=== PATIENT | female | born 1945 | race Caucasian/White ===

== ENCOUNTER 2016-10-04 19:33 | Outpatient (CLI) | payer MEDICARE | END 2016-10-04 19:34 | disposition home or self-care (01) | DX: K52.9 Noninfective gastroenteritis and colitis, unspecified (principal) ==

== ENCOUNTER 2016-10-31 08:00 | Outpatient (CLI) | payer MEDICARE | END 2016-10-31 08:01 | disposition home or self-care (01) | DX: R63.4 Abnormal weight loss (principal) ==

== ENCOUNTER 2016-11-17 13:36 | Outpatient (CLI) | payer MEDICARE | END 2016-11-17 13:37 | disposition home or self-care (01) | DX: Z12.31 Encounter for screening mammogram for malignant neoplasm of breast (principal); Z80.3 Family history of malignant neoplasm of breast ==

== ENCOUNTER 2016-12-20 06:14 | Day surgery (SDC) | payer MEDICARE ==
[2016-12-20] MEDS ORDERED: LACTATED RINGERS 1,000 ML IV ONE (07:06)
[2016-12-20] MEDS ORDERED: MIDAZOLAM 2 MG/2 ML VIAL IVP ONE (07:30)
[2016-12-20] MEDS ORDERED: fentaNYL 250 MCG/5 ML VIAL IVP ONE (07:30)
[2016-12-20] MEDS ORDERED: LIDO GARGLE 30 ML BOTTLE TOP ONE (07:42)
== END 2016-12-20 06:15 | disposition home or self-care (01) ==
PROC: 0DB68ZX Excision of Stomach, Via Natural or Artificial Opening Endoscopic, Diagnostic (ICD-10-PCS; principal; 2016-12-20 07:30)
DX: R63.4 Abnormal weight loss (principal); K21.9 Gastro-esophageal reflux disease without esophagitis; K29.50 Unspecified chronic gastritis without bleeding; Z87.891 Personal history of nicotine dependence; Z68.21 Body mass index [BMI] 21.0-21.9, adult; K52.9 Noninfective gastroenteritis and colitis, unspecified; Z88.2 Allergy status to sulfonamides
CPT/HCPCS: 43239; A9270; J3010; J7120

== ENCOUNTER 2017-07-24 10:25 | Outpatient (CLI) | payer MEDICARE ==
[2017-07-24 19:06] LABS: BASOPHILS % (AUTO) 0.7 %; EOSINOPHILS # (AUTO) 0.2 10^3/uL (0.0-0.7); EOSINOPHILS % (AUTO) 3.3 %; HCT - HEMATOCRIT 38.8 % (37.0-47.0); HGB - HEMOGLOBIN 12.6 g/dL (12.0-16.0); LYMPHOCYTES # (AUTO) 1.5 10^3/uL (1.5-3.5); LYMPHOCYTES % (AUTO) 28.2 %; MEAN CORPUSCULAR HEMOGLOBIN 30.8 pg (27.0-31.0); MEAN CORPUSCULAR HGB CONC 32.6 g/dL (32.0-36.0); MEAN CORPUSCULAR VOLUME 94.7 fL (81.0-99.0); MEAN PLATELET VOLUME 8.1 fL (7.9-10.8); MONOCYTES # (AUTO) 0.5 10^3/uL (0.0-1.0); MONOCYTES % (AUTO) 10.5 %; NEUTROPHILS % (AUTO) 57.3 %; NUCLEATED RED BLOOD CELLS AUTO 0.1 /100WBC; RED BLOOD COUNT 4.09 10^6/uL (4.20-5.40); RED CELL DISTRIBUTION WIDTH 13.4 % (12.0-15.0); UNCORRECTED WHITE BLOOD COUNT 5.2 x10^3/uL; WHITE BLOOD COUNT 5.2 x10^3/uL (4.8-10.8)
[2017-07-24 19:54] LABS: ALBUMIN/GLOBULIN RATIO 1.7 (1.0-2.2); BILIRUBIN,TOTAL 0.3 mg/dL (0.2-1.0); BUN - BLOOD UREA NITROGEN 15 mg/dL (6-20); CALCIUM 9.3 mg/dL (8.5-10.3); CARBON DIOXIDE - CO2 29 mmol/L (21-32); CHLORIDE 103 mmol/L (101-111); CHOL/HDL RATIO 3.2 (<4.4); CHOLESTEROL 300 mg/dL; CREATININE 0.8 mg/dL (0.4-1.0); GFR - MDRD 71 (>89); GLUCOSE 77 mg/dL (70-100); HDL CHOLESTEROL 93 mg/dL; LDL/HDL RATIO 1.9 (<4.4); SODIUM 139 mmol/L (135-145); TOTAL PROTEIN 6.7 g/dL (6.7-8.2); TRIGLYCERIDES 170 mg/dL; VLDL CHOLESTEROL 34 mg/dL
== END 2017-07-24 10:26 | disposition home or self-care (01) ==
LOC: LAB.WCP 10:25
PROVIDERS: ATTEND Family Medicine
DX: R63.4 Abnormal weight loss (principal); E78.5 Hyperlipidemia, unspecified; D64.9 Anemia, unspecified
CPT/HCPCS: 36415; 80053; 80061; 84443; 85025

== ENCOUNTER 2017-11-23 08:48 | Outpatient (CLI) | payer MEDICARE ==
--- NOTE | 2017-11-24 15:51 | Mammography Report ---
DIGITAL SCREENING MAMMOGRAM: 11/23/2017 CLINICAL INDICATION: A 72-year-old, for screening. COMPARISON: 11/2016, 08/2015, 08/2013, 04/2012, 03/2011, 12/2009. TECHNIQUE: Routine CC and MLO projections were obtained of the breasts. FINDINGS: Scattered fibroglandular tissue is present within the breasts. There are no dominant masses, suspicious microcalcifications, or secondary signs of malignancy. In comparison to the previous studies, there are no significant changes. ASSESSMENT: NO MAMMOGRAPHIC EVIDENCE OF MALIGNANCY. NO SIGNIFICANT INTERVAL CHANGES. RECOMMENDATION: Screening mammography is recommended annually. BIRADS category 1 - negative. STANDARD QUALIFYING STATEMENTS: 1. This examination was reviewed with the aid of Computed-Aided Detection (CAD). 2. A negative or benign imaging report should not delay biopsy if clinically suspicious findings are present. Consider surgical consultation if warranted. More than 5% of cancers are not identified by imaging. 3. Dense breasts may obscure an underlying neoplasm. TD: 11/24/2017 15:51
== END 2017-11-23 08:49 | disposition home or self-care (01) ==
LOC: DI.N 08:48
PROVIDERS: ATTEND Family Medicine
DX: Z12.31 Encounter for screening mammogram for malignant neoplasm of breast (principal)
CPT/HCPCS: 77067

== ENCOUNTER 2017-11-23 09:20 | Outpatient (CLI) | payer MEDICARE ==
--- NOTE | 2017-11-23 10:20 | XRAY Report ---
THREE VIEW RIGHT KNEE: 11/22/2017 CLINICAL INDICATION: Pain. FINDINGS: AP, lateral, sunrise views of the right knee demonstrate no evidence of fracture or dislocation. The joint spaces are preserved. No effusion is present. IMPRESSION: NORMAL RIGHT KNEE. TD: 11/23/2017 10:19
== END 2017-11-23 23:59 | disposition home or self-care (01) ==
LOC: DI.N 09:20
PROVIDERS: ATTEND Family Medicine
DX: M25.561 Pain in right knee (principal)

== ENCOUNTER 2017-11-29 17:07 | Emergency (ER) | payer MEDICARE ==
[2017-11-29 17:31] VITALS: BP 148/67
--- NOTE | 2017-11-29 17:55 | XRAY Preliminary Report ---
Exam: XR WRIST 4 VIEW LT IMPRESSION: 1. Acute, transverse and impacted, mildly dorsally angulated distal left radius metaphyseal fracture. 2. Large amount of soft tissue swelling. No dislocation. [facility] SITE ID: [id number]
--- NOTE | 2017-11-29 19:16 | XRAY Report ---
EXAM: LEFT WRIST RADIOGRAPHY EXAM DATE: 11/29/2017 05:46 PM. CLINICAL HISTORY: Injury. COMPARISON: None. TECHNIQUE: 3 views. FINDINGS: Bones: Acute transverse, impacted, mildly dorsally angulated distal left radius metaphyseal fracture. No carpal bone fracture is noted. Joints: Normal. No subluxations. Soft Tissues: Large amount of soft tissue swelling in the dorsal left wrist. IMPRESSION: 1. Acute, transverse and impacted, mildly dorsally angulated distal left radius metaphyseal fracture. 2. Large amount of soft tissue swelling. No dislocation. [facility] Referring Provider Line: [phone] SITE ID: [id number]
--- NOTE | 2017-11-29 19:22 | ED Physician Documentation ---
PD HPI UPPER EXT INJURY - Stated complaint Stated Complaint: LT WRIST PX - Chief complaint Chief Complaint: Ext Problem - History obtained from History obtained from: Patient - History of Present Illness Location: Left, Wrist Type of injury: Fall Where injury occurred: Home (out in her garden.) Timing - onset: Today Timing - details: Abrupt onset, Still present Improved by: Immobilization Worsened by: Moving, Palpating Associated symptoms: No: Weakness, Numbness Contributing factors: No: Anticoagulated Similar symptoms before: Has not had sx before Recently seen: Not recently seen Review of Systems Skin: denies: Abrasion (s), Laceration (s) Neurologic: denies: Focal weakness, Numbness PD PAST MEDICAL HISTORY - Past Medical History Cardiovascular: High cholesterol Respiratory: None Neuro: None Endocrine/Autoimmune: None GI: GERD, Chronic diarrhea, Other HEENT: Other Psych: Depression, Anxiety, Panic attacks, ADD/ADHD Musculoskeletal: Osteoporosis, Chronic back pain, Other Derm: Psoriasis - Past Surgical History Past Surgical History: Yes General: Colonoscopy Ortho: Arthroscopic surgery, 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 HEENT: Tonsil/Adenoidectomy - Present Medications Home Medications: Ambulatory Orders Medication Instructions Recorded Confirmed HYDROcod/ACETAM 5/325 [[place] 5/325] 1 - 2 ea PO Q6H PRN #15 tablet 02/29/16 Omeprazole [PriLOSEC] 20 mg PO DAILY 12/19/16 12/20/16 HYDROcod/ACETAM 5/325 [[place] 5/325] 1 tab PO Q6H PRN #15 tablet 11/29/17 - Allergies Allergies/Adverse Reactions: Allergies Allergy/AdvReac Type Severity Reaction Status Date / Time Sulfa (Sulfonamide AdvReac Nausea Verified 12/19/16 12:31 Antibiotics) - Social History Does the pt smoke?: No Smoking Status: Never smoker - Immunizations Immunizations are current?: Yes PD ED PE NORMAL - Vitals Vital signs reviewed: Yes - General General: Alert and oriented X 3, No acute distress, Well developed/nourished - HEENT HEENT: Pharynx benign - Extremities Extremities: No deformity, No tenderness to palpate - Neuro Neuro: Alert and oriented X 3 Eye Opening: Spontaneous Motor: Obeys Commands Verbal: Oriented GCS Score: 15 Results - Vitals Vitals: Oxygen O2 Source Room air Procedures - Splint (location) wrist left Splint applied by: Physician Type of splint: Fiberglass, Long arm, Sugar tong Other: Patient tolerated well, No complications, Neurovascular intact, Sling provided PD MEDICAL DECISION MAKING - ED course Complexity details: reviewed results, considered differential, d/w patient Departure - Departure Disposition: 01 Home, Self Care Clinical Impression: Accidental fall Qualifiers: Encounter type: initial encounter Qualified Code(s): W19.XXXA - Unspecified fall, initial encounter Distal radius fracture, left Qualifiers: Encounter type: initial encounter Fracture type: closed Fracture morphology: Colles' Qualified Code(s): S52.532A - Colles' fracture of left radius, initial encounter for closed fracture Condition: Stable Record reviewed to determine appropriate education?: Yes Instructions: ED Fx Colles Wrist No Redu Requ, ED Splint Care Fiberglass Follow-Up: Quintin Salas DO [Primary Care Provider] - Brisa Ozuna MD [Provider Admit Priv/Credential] - Prescriptions: HYDROcod/ACETAM 5/325 [[place] 5/325] 1 tab PO Q6H PRN #15 tablet PRN Reason: Pain Comments: Keep the splint clean and dry. Elevate rest and ice your wrist frequently over the next few days to reduce swelling. Use the sling to help keep it elevated and rested. Call tomorrow orthopedics for follow-up appointment for early next week. Tell them you are seen here in the ER and have a broken wrist. He will need a cast for likely 4-6 weeks for this to heal up fully. Tylenol or ibuprofen if needed for pains. Add hydrocodone if needed for worse pain. Discharge Date/Time: 11/29/17 20:00
[2017-11-29] MEDS ORDERED: HYDROcod/ACET 5/325 Prepack 4 PO STA (19:37)
[2017-11-29] MEDS ORDERED: HYDROcod/ACETAM 5/325 MG TABLET PO STA (19:37)
[2017-11-29] MEDS ORDERED: IBUPROFEN 600 MG TABLET PO STA (19:37)
== END 2017-11-29 20:00 | disposition home or self-care (01) ==
LOC: ED 17:07
DX: S52.532A Colles' fracture of left radius, initial encounter for closed fracture (principal); W18.39XA Other fall on same level, initial encounter; Y92.017 Garden or yard in single-family (private) house as the place of occurrence of the external cause; E78.00 Pure hypercholesterolemia, unspecified; M81.0 Age-related osteoporosis without current pathological fracture; K21.9 Gastro-esophageal reflux disease without esophagitis
CPT/HCPCS: 29105; 73110; 99283; A9270

== ENCOUNTER 2018-08-16 08:30 | Outpatient (CLI) | payer MEDICARE ==
--- NOTE | 2018-08-16 15:04 | MRI Report ---
Reason: WRIST PAIN,LEFT Procedure Date: 08/16/2018 Accession Number: [id number] / [id number] Procedure: MRI - Wrist LT W/O CPT Code: FULL RESULT: EXAM: LEFT WRIST MRI WITHOUT CONTRAST EXAM DATE: 08/16/2018 08:57 AM. CLINICAL HISTORY: Left wrist pain. COMPARISON: 08/09/2018 radiograph. TECHNIQUE: Multiplanar, multisequence T1-weighted and fluid-sensitive sequences of the wrist without contrast. Other: None. FINDINGS: Bones: No fractures. Mild joint space narrowing and osteophyte formation is at the first carpometacarpal joint. There is severe joint space narrowing and osteophyte formation at the proximal interphalangeal joint of the fifth digit. Periarticular marrow edema is at the intersection of the scapholunate articulation. Marrow edema is demonstrated in the distal scaphoid. Minimal osteophyte formation is in the triscaphe joint. Cartilage: The articular cartilage of the first carpometacarpal and triscaphe joints is mild to moderately thinned. The triangular fibrocartilage has a focal full-thickness, partial-width tear of the mid radial fibers located approximately 2.6 mm from the radial insertion site (701/8). Ligaments: The scapholunate and lunotriquetral ligaments are intact. The visualized other intrinsic, extrinsic and collateral ligaments are unremarkable. Tendons: The extensor carpi ulnaris tendon demonstrates mild tendinosis. The other visualized flexor and extensor tendons are unremarkable. Musculature: No edema or fatty atrophy. Other: The contents of the carpal tunnel, including the median nerve, are unremarkable. Guyons canal is unremarkable. No ganglion cysts. A moderate effusion is in the distal radioulnar joint. The subcutaneous tissues are unremarkable. IMPRESSION: 1. 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 2. Full-thickness, partial-width tear of the mid radial fibers of the triangular fibrocartilage. 3. Mild tendinosis of the extensor carpi ulnaris tendon. [facility] MUSCULOSKELETAL RADIOLOGY SECTION
== END 2018-08-16 08:31 | disposition home or self-care (01) ==
LOC: DI 08:30
PROVIDERS: ATTEND Family Medicine
DX: S63.522A Sprain of radiocarpal joint of left wrist, initial encounter (principal); M67.932 Unspecified disorder of synovium and tendon, left forearm; M19.032 Primary osteoarthritis, left wrist

== ENCOUNTER 2019-04-10 09:39 | Outpatient (CLI) | payer MEDICARE ==
--- NOTE | 2019-04-11 09:12 | DEXA Report ---
Reason: ENCOUNTER FOR SCREENING FOR OSTEOPOROSIS Procedure Date: 04/10/2019 Accession Number: [id number] / [id number] Procedure: DEX - Dexa Spine and/or Hip CPT Code: FULL RESULT: EXAM: Dexa Spine and/or Hip DATE: 04/10/2019 10:05 AM CLINICAL HISTORY: ENCOUNTER FOR SCREENING FOR OSTEOPOROSIS TECHNIQUE: Dual energy x-ray absorptiometry (DXA) was performed on a Helishopter System. Regions measured are the AP Spine, femoral neck, and if needed forearm. COMPARISON: None. In accordance with the International Society for Clinical Densitometry (ISCD) guidelines, data from previous exams may be reanalyzed using current recommendations and techniques. This is done to allow a more accurate basis for comparison with the current study. FINDINGS: The data for the lumbar spine is as follows: BMD (g/cm/cm) T-SCORE Z-SCORE REGION L1 0.794 -2.8 -0.9 L2 0.820 -3.2 -1.3 L3 0.907 -2.4 -0.5 L4 1.034 -1.4 0.5 TOTAL 0.897 -2.4 -0.5 NOTE: All evaluable vertebrae are used for classification The data for the hip is as follows: BMD (g/cm/cm) T-SCORE Z-SCORE REGION Neck 0.664 -2.7 -0.8 TOTAL 0.692 -2.5 -0.8 NOTE: The femoral neck or total proximal femur, whichever is lowest, is used for classification. IMPRESSION: THE WHO CLASSIFICATION BASED ON THE INTERNATIONAL REFERENCE STANDARD IS OSTEOPOROSIS. THE FRACTURE RISK IS HIGH. RECOMMENDATION: Patients with diagnosis of osteoporosis or osteopenia should have regular bone mineral density assessment. For those eligible for Medicare, routine testing is allowed once every 2 years. Testing frequency can be increased for patients who have rapidly progressing disease or for those who are receiving medical therapy to restore bone mass. COMMENT: World Health Organization (WHO) definitions for osteoporosis and osteopenia: NORMAL BMD: T-score at -1.0 or higher, fracture risk is low OSTEOPENIA BMD: T-score between -1.0 and -2.5, fracture risk is increased. OSTEOPOROSIS BMD: T-score at -2.5 or lower, fracture risk is high. National Osteoporosis Foundation recommends: 1. Obtain adequate dietary calcium (at least 1200 mg per day) and vitamin D (400-800 international units per day). 2. Participate, as appropriate, in regular weightbearing and muscle-strengthening exercise. 3. Avoid tobacco use and reduce alcohol and caffeine intake. 4. For more detailed information see the website at www.NOF.org.
== END 2019-04-10 09:40 | disposition home or self-care (01) ==
LOC: DI 09:39
PROVIDERS: ATTEND Family Medicine
DX: M81.0 Age-related osteoporosis without current pathological fracture (principal)
CPT/HCPCS: 77080

== ENCOUNTER 2019-04-10 11:24 | Outpatient (CLI) | payer MEDICARE ==
--- NOTE | 2019-04-11 08:43 | Mammography Report ---
Reason: SCREENING MAMMO Procedure Date: 04/10/2019 Accession Number: [id number] / [id number] Procedure: MGN - Screening Mammo Dig Bilat CPT Code: FULL RESULT: EXAM: Screening Mammo Dig Bilat DATE: 04/10/2019 11:42 AM CLINICAL HISTORY: Screening encounter. Family history of breast cancer in the daughter at the age of 27. TECHNIQUE: (B) - Bilateral CC and MLO views were obtained. COMPARISON: 11/23/2017 through 08/06/2013. PARENCHYMAL PATTERN: (A) - The breast(s) demonstrate(s) scattered fibroglandular densities. FINDINGS: There are typically benign vascular calcifications. There are no suspicious masses, calcifications, or areas of distortion. IMPRESSION: Benign findings. BI-RADS category 2. RECOMMENDATION: (ANNUAL) - Recommend routine annual screening mammography. BI-RADS CATEGORY: (2) - Benign Findings. STANDARD QUALIFYING STATEMENTS: 1. This examination was not reviewed with the aid of Computer-Aided Detection (CAD). 2. A negative or benign imaging report should not preclude biopsy if clinically suspicious findings are present. 3. Dense breasts may obscure an underlying neoplasm. 4. This examination was reviewed without the aid of 3D breast imaging (tomosynthesis).
== END 2019-04-10 11:25 | disposition home or self-care (01) ==
LOC: DI.N 11:24
DX: Z12.31 Encounter for screening mammogram for malignant neoplasm of breast (principal); Z80.3 Family history of malignant neoplasm of breast
CPT/HCPCS: 77067

== ENCOUNTER 2019-04-18 05:46 | Emergency (ER) | payer MEDICARE ==
[2019-04-18] MEDS ORDERED: LIDOCAINE 1% 2 ML VIAL SUBQ STA (06:13)
[2019-04-18] MEDS ORDERED: ACETAMINOPHEN 325 MG TABLET PO STA (06:13)
[2019-04-18] MEDS ORDERED: diazePAM 5 MG TABLET PO STA (06:13)
--- NOTE | 2019-04-18 06:17 | ED Physician Documentation ---
History of Present Illness - Stated complaint Stated Complaint: BK PX/LEG PX - Chief complaint Chief Complaint: Back Pain - Additonal information Additional information: This is a 73-year-old female with a history of lumbar back surgery, who presents with lower back/right gluteal pain radiating to her right leg. Patient was working in her garden 2 days ago, moving some rocks and she reached back and twisted to grab a rock and she had some pain in her right lower back rating to her right gluteal region. The following day it began to radiate down below her leg. She is in enough pain that she has had difficulty ambulating. She denies any weakness or numbness in her legs, she occasionally will get some tingling in her toes in her right leg but she thinks this is related to position, because it will resolve when she changes position of her leg. She denies any changes in her bowel or bladder function, no numbness in her perineal area. Review of Systems Constitutional: denies: Fever GI: denies: Abdominal Pain : denies: Hesitancy, Unable to Void Musculoskeletal: reports: Back pain Neurologic: denies: Generalized weakness, Focal weakness Immunocompromised: denies: Immunocompromised PD PAST MEDICAL HISTORY - Past Medical History Cardiovascular: High cholesterol Respiratory: None Neuro: Migraines, Other Endocrine/Autoimmune: None GI: GERD, Chronic diarrhea, Other HEENT: Other Psych: Depression, Anxiety, Panic attacks, ADD/ADHD Musculoskeletal: Osteoporosis, Chronic back pain, Other Derm: Psoriasis Other Past Medical History: Intercranial aneurysm - Past Surgical History Past Surgical History: Yes General: Colonoscopy Ortho: Arthroscopic surgery, 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 HEENT: Cataracts, Tonsil/Adenoidectomy - Present Medications Home Medications: Ambulatory Orders Medication Instructions Recorded Confirmed Acetaminophen 650 mg PO Q6HR #30 tablet 04/18/19 Meloxicam 15 mg PO DAILY 04/18/19 04/18/19 Methocarbamol [Robaxin] 500 mg PO TID PRN #21 tablet 04/18/19 - Allergies Allergies/Adverse Reactions: Allergies Allergy/AdvReac Type Severity Reaction Status Date / Time Sulfa (Sulfonamide AdvReac Nausea Verified 12/19/16 12:31 Antibiotics) - Social History Does the pt smoke?: No Smoking Status: Never smoker Does the pt drink ETOH?: No Does the pt have substance abuse?: No - Immunizations Immunizations are current?: Yes PD ED PE NORMAL - Vitals Vital signs reviewed: Yes - General General: Alert and oriented X 3 - HEENT HEENT: Atraumatic - Neck Neck: Supple, no meningeal sign - Cardiac Cardiac: RRR - Respiratory Respiratory: No respiratory distress - Abdomen Abdomen: Non distended - Back Back: Other (There is no tenderness palpation in the midline. Over the right paraspinous lumbar muscles there is tenderness to palpation, as well as in the superior gluteal muscles. Patient also has some tenderness on her medial anterior right thigh. 5 out of 5 strength with ankle dorsiflexion and plantarflexion bilaterally. Sensation to light touch is intact over the entire bilateral feet and lower extremities. DP pulses are 2+ and symmetric bilaterally. 2+ patellar reflexes bilaterally.) - Derm Derm: Warm and dry - Extremities Extremities: No deformity - Neuro Neuro: Alert and oriented X 3 - Psych Psych: Normal mood, Normal affect Results - Vitals Vitals: Vital Signs - 24 hr 04/18/19 05:52 Temperature 36.6 C Heart Rate 69 Respiratory 17 Rate Blood Pressure 144/96 H O2 Saturation 100 Oxygen O2 Source Room air Procedures - General procedure General procedure: Trigger point injection: After discussing the risks and benefits of the procedure, including the risk of bleeding and infection. Patient verbalized her consent. I localized the 3 areas of maximal tenderness in her right lumbar spine, these were prepped with an alcohol pad, and I injected 0.5 cc of lidocaine using a 27-gauge needle into each of these areas. Care was taken to pull back on the syringe to confirm that the needle was not in a vessel, and care was also taken to only insert the needle less than 2 cm in depth to avoid damaging any deep structures. Patient tolerated the procedure well. PD MEDICAL DECISION MAKING - ED course Complexity details: considered differential (Sciatica, muscle strain, fracture, muscle spasm, contusion) ED course: On initial examination patient is neurologically intact, she is uncomfortable appearing. She was given Valium for pain, Tylenol, and and I performed a trigger point injection in the areas of most tenderness as noted above. Given patient's age and her severe pain a CT scan of her L-spine was obtained, this shows no acute osseous abnormality or fracture, she does have extensive degenerative changes. On repeat examination she is feeling better, though she does have some pain. She continues to be neurologically intact, has no fever, no indications for emergency MRI at this time. I reviewed the results of her studies with the patient, including that she likely has sciatica with potentially some degree of muscle spasm or strain as well. I reviewed care for this, prescribed her Tylenol as well as Robaxin for breakthrough pain, and reviewed the dangers of sedating medications with her. She has follow-up with her primary care provider and a pain specialist later this week. I discussed return precautions including any weakness, numbness, or other symptoms that are concerning. Patient agreed and was discharged home in the care of her family. Departure - Departure Disposition: , Self Care Clinical Impression: Back pain Qualifiers: Back pain location: low back pain Chronicity: acute Back pain laterality: right Sciatica presence: with sciatica Sciatica laterality: sciatica of right side Qualified Code(s): M54.41 - Lumbago with sciatica, right side Condition: Good Instructions: ED Low Back Pain Injury Follow-Up: Mejia Corona DO [Primary Care Provider] - Within 1 week Prescriptions: Acetaminophen 650 mg PO Q6HR #30 tablet Methocarbamol [Robaxin] 500 mg PO TID PRN #21 tablet PRN Reason: Pain Comments: You were seen today for lower back pain. I think this is likely due to sciatica, or a pinched nerve which is causing pain going down your leg. You may also have some muscle strain. Please rest, and use ice, or use heat on your back. Avoid any straining or twisting movement's. You can continue your normal daily activities otherwise. You may use a anti-inflammatory medication such as Aleve or ibuprofen, combined with Tylenol and muscle relaxant Robaxin if needed. Follow-up with your primary care provider as soon as possible. Return to the emergency department if you develop any weakness, numbness, or difficulty going to the bathroom, or any other concerning symptoms.
--- NOTE | 2019-04-18 07:43 | CT Report ---
Reason: Severe lower back pain after twisting Procedure Date: 04/18/2019 Accession Number: [id number] / [id number] Procedure: CT - LUMBAR SPINE WO CPT Code: FULL RESULT: EXAM: CT LUMBAR SPINE WITHOUT CONTRAST EXAM DATE: 04/18/2019 07:31 AM. CLINICAL HISTORY: Low back pain. COMPARISONS: None. TECHNIQUE: Thin-section axial images were acquired of the lumbar spine from T12 to S1 without contrast. Post-processing: Coronal and sagittal reformats. Other: None. In accordance with CT protocol optimization, one or more of the following dose reduction techniques were utilized for this exam: automated exposure control, adjustment of mA and/or KV based on patient size, or use of iterative reconstructive technique. FINDINGS: Alignment: No scoliosis or spondylolisthesis. Bones: Five [id number] lumbar vertebral bodies are present. No fractures or bone lesions. Disk Levels/Facets: There is moderate diffuse degenerative disk disease seen throughout the mid and lower aspects of the lumbar spine, worse at L4-L5 and L5-S1. There is mild diffuse degenerative facet disease seen throughout the mid and lower aspect of the lumbar spine. Overall, the bony central canal appears relatively patent although underlying diskogenic disease in the mid lumbar spine suggests a degree of spinal canal stenosis (image 70/4) is.. Musculature: Normal. No fatty atrophy. Other: The visualized retroperitoneum is unremarkable. IMPRESSION: 1. No acute osseous abnormality demonstrated. 2. Mild to moderate diffuse degenerative spondylosis changes in the mid and lower lumbar spine. [facility]
[2019-04-18 08:25] VITALS: BP 135/84
== END 2019-04-18 08:24 | disposition home or self-care (01) ==
LOC: ED 05:46
DX: M54.41 Lumbago with sciatica, right side (principal)
CPT/HCPCS: 20552; 72131; 99284; A9270

== ENCOUNTER 2020-01-17 20:38 | Outpatient (CLI) | payer MEDICARE ==
--- NOTE | 2020-01-17 21:59 | Ultrasound Report ---
Reason: LEFT LEG PAIN Procedure Date: 01/17/2020 Accession Number: [id number] / [id number] Procedure: US - Duplex Ext Veins Left CPT Code: Final Report FULL RESULT: EXAM: LEFT LOWER EXTREMITY VENOUS ULTRASOUND EXAM DATE: 01/17/2020 09:52 PM. CLINICAL HISTORY: LEFT LEG PAIN. COMPARISON: DUPLEX EXT VEINS LEFT 02/29/2016 6:16 PM. TECHNIQUE: Real-time sonographic vascular imaging was performed by the tig welder through the lower extremity utilizing both color-flow and Doppler spectral analysis. Multiple wholesale representative static images were saved for review. FINDINGS: Common Femoral Vein (CFV): Normal. CFV-GSV Junction: Normal. Profunda Femoral Vein (PFV): Normal. Femoral Vein (FV) Prox: Normal. Femoral Vein (FV) Mid: Normal. Femoral Vein (FV) Dist: Normal. Popliteal Vein: Normal. Posterior Tibial Veins: Normal. Peroneal Veins: Normal. Contralateral Side CFV: Normal. Other: None. IMPRESSION: No evidence for deep venous thrombosis. [facility]
== END 2020-01-17 20:39 | disposition home or self-care (01) ==
LOC: DI 20:38
PROVIDERS: ATTEND Family Medicine
DX: M79.605 Pain in left leg (principal)

== ENCOUNTER 2020-04-23 09:24 | Outpatient (CLI) | payer MEDICARE ==
--- NOTE | 2020-04-24 08:09 | Mammography Report ---
BILATERAL DIGITAL SCREENING MAMMOGRAM 3D/2D: 04/23/2020 CLINICAL: Routine screening. Comparison is made to exams dated: 04/10/2019 mammogram, 11/23/2017 mammogram, 11/17/2016 mammogram, and 08/25/2015 mammogram - [facility]. There are scattered fibroglandular elements in both breasts. No significant masses, calcifications, or other findings are seen in either breast. There has been no significant interval change. IMPRESSION: NEGATIVE There is no mammographic evidence of malignancy. A 1 year screening mammogram is recommended. This exam was interpreted at Station ID: [id number]. NOTE: For mammograms, a report in lay terms will be sent to the patient. Approximately 15% of breast malignancies will not be visualized mammographically. In the management of a palpable breast mass, a negative mammogram must not discourage biopsy of a clinically suspicious lesion. Electronically Signed By: Kilo Phoenix M.D. aty/penrad:04/23/2020 10:37:31 ACR BI-RADS Category 1: Negative [id number] PARENCHYMAL PATTERN: (A) - The breast(s) demonstrate(s) scattered fibroglandular densities. BI-RADS CATEGORY: (1) - 1 RECOMMENDATION: (ANNUAL) - Recommend routine annual screening mammography. [id number] 1 year screening LATERALITY: (B)
== END 2020-04-23 09:25 | disposition home or self-care (01) ==
LOC: DI.N 09:24
PROVIDERS: ATTEND Registered Nurse
DX: Z12.31 Encounter for screening mammogram for malignant neoplasm of breast (principal); Z80.3 Family history of malignant neoplasm of breast
CPT/HCPCS: 77063; 77067

== ENCOUNTER 2020-06-10 14:03 | Outpatient (CLI) | payer MEDICARE ==
--- NOTE | 2020-06-10 17:44 | MRI Report ---
PROCEDURE: Angio Brain W/O (MRA) INDICATIONS: ANEURYSM TECHNIQUE: Noncontrast axial 3-D [id number] MR angiogram, with 3-dimensional maximum intensity projection (M IP) reformats of the internal carotid arteries and posterior circulation then performed. COMPARISON: MRI/MRA brain 06/10/2020, 05/30/2016 FINDINGS: Image quality: Excellent. Anterior circulation: Intracranial internal carotid arteries demonstrate normal size and intralumina l flow signal. The flow within the paired anterior cerebral arteries is normal and symmetric. Previo usly identified aneurysm within the right middle cerebral artery at the trifurcation is stable compar ed to prior exam. It measures approximately 6 mm long by 4 mm wide. The anterior communicating artery is seen. No stenoses, occlusions, or aneurysms. Posterior circulation: Visualized portions of the vertebral arteries demonstrate normal caliber, and join to form a normal appearing basilar artery. The flow within the posterior cerebral arteries is normal and symmetric. No stenoses, occlusions, or aneurysms. IMPRESSION: 1. 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 No new aneurysms are identified. Reviewed by: Rosalba Stanton MD on 06/10/2020 4:18 PM PDT Approved by: Rosalba Stanton MD on 06/10/2020 4:18 PM PDT Station ID: [id number]
== END 2020-06-10 14:04 | disposition home or self-care (01) ==
LOC: DI 14:03
PROVIDERS: ATTEND Family Medicine
DX: I67.1 Cerebral aneurysm, nonruptured (principal)
CPT/HCPCS: 70544; 70551

== ENCOUNTER 2020-06-26 08:00 | Outpatient (CLI) | payer MEDICARE ==
[2020-06-26 11:40] LABS: BASOPHILS # (AUTO) 0.1 10^3/uL (0.0-0.1); BASOPHILS % (AUTO) 0.8 %; EOSINOPHILS # (AUTO) 0.1 10^3/uL (0.0-0.7); EOSINOPHILS % (AUTO) 2.3 %; HGB - HEMOGLOBIN 13.3 g/dL (12.0-16.0); LYMPHOCYTES # (AUTO) 1.5 10^3/uL (1.5-3.5); LYMPHOCYTES % (AUTO) 24.7 %; MEAN CORPUSCULAR HGB CONC 32.5 g/dL (32.0-36.0); MEAN CORPUSCULAR VOLUME 95.3 fL (81.0-99.0); MEAN PLATELET VOLUME 9.8 fL (7.9-10.8); MONOCYTES # (AUTO) 0.6 10^3/uL (0.0-1.0); MONOCYTES % (AUTO) 9.7 %; NEUTROPHILS # (AUTO) 3.8 10^3/uL (1.5-6.6); NEUTROPHILS % (AUTO) 62.3 %; PLT - PLATELET COUNT 291 10^3/uL (130-450); RED BLOOD COUNT 4.29 10^6/uL (4.20-5.40); RED CELL DISTRIBUTION WIDTH 13.2 % (12.0-15.0); WHITE BLOOD COUNT 6.1 x10^3/uL (4.8-10.8)
[2020-06-26 12:02] LABS: ALBUMIN 4.1 g/dL (3.2-5.5); ALBUMIN/GLOBULIN RATIO 1.4 (1.0-2.2); BILIRUBIN,TOTAL 0.4 mg/dL (0.2-1.0); CALCIUM 9.7 mg/dL (8.5-10.3); CREATININE 0.7 mg/dL (0.4-1.0); MAGNESIUM 2.3 mg/dL (1.7-2.8); TOTAL PROTEIN 7.1 g/dL (6.7-8.2)
== END 2020-06-26 23:59 | disposition home or self-care (01) ==
LOC: LAB.WCP 08:00
PROVIDERS: ATTEND Family Medicine
DX: K29.70 Gastritis, unspecified, without bleeding (principal)
CPT/HCPCS: 36415; 80053; 83690; 83735; 84443; 85025

== ENCOUNTER 2020-07-08 08:42 | Outpatient (CLI) | payer MEDICARE | END 2020-07-08 08:43 | disposition home or self-care (01) | LOC: DI 08:42 | PROVIDERS: ATTEND Family Medicine | DX: R00.2 Palpitations (principal); I08.1 Rheumatic disorders of both mitral and tricuspid valves | CPT/HCPCS: 93306 ==

== ENCOUNTER 2020-11-26 15:26 | Outpatient (CLI) | payer OTHER ==
--- NOTE | 2020-11-26 16:51 | XRAY Report ---
PROCEDURE: Lumbar Spine 2 View INDICATIONS: CHRONIC LOW BACK PAIN chronic low back pain TECHNIQUE: Two views of the lumbar spine were acquired. COMPARISON: 04/18/2019 CT lumbar spine FINDINGS: Bones: There are 5 nonrib-bearing lumbar-type vertebral bodies of normal height and alignment. Disc h eight loss from L3 L4 through L5 S1, with near [id number]-[id number] endplate contact at these levels. At leas t mild osseous neural foraminal narrowing at these levels. Soft tissues: Overlying bowel gas pattern is normal. No suspicious soft tissue calcifications. IMPRESSION: Degenerative changes in the lower lumbar spine, overall moderate and unchanged from CT c omparison. Reviewed by: Nabor Phillips MD on 11/26/2020 4:50 PM PDT Approved by: Nabor Phillips MD on 11/26/2020 4:50 PM PDT Station ID: [id number]
== END 2020-11-26 15:27 | disposition home or self-care (01) ==
LOC: DI.N 15:26
PROVIDERS: ATTEND Family Medicine
DX: M51.36 Other intervertebral disc degeneration, lumbar region (principal); M48.061 Spinal stenosis, lumbar region without neurogenic claudication; M51.37 Other intervertebral disc degeneration, lumbosacral region; M48.07 Spinal stenosis, lumbosacral region

== ENCOUNTER 2021-04-15 08:40 | Outpatient (CLI) | payer OTHER ==
[2021-04-15 12:18] LABS: BASOPHILS # (AUTO) 0.1 10^3/uL (0.0-0.1); BASOPHILS % (AUTO) 0.9 %; EOSINOPHILS # (AUTO) 0.3 10^3/uL (0.0-0.7); EOSINOPHILS % (AUTO) 5.6 %; HCT - HEMATOCRIT 41.4 % (37.0-47.0); HGB - HEMOGLOBIN 13.6 g/dL (12.0-16.0); LYMPHOCYTES # (AUTO) 1.8 10^3/uL (1.5-3.5); LYMPHOCYTES % (AUTO) 30.6 %; MEAN CORPUSCULAR HEMOGLOBIN 31.2 pg (27.0-31.0); MEAN CORPUSCULAR HGB CONC 32.9 g/dL (32.0-36.0); MEAN PLATELET VOLUME 9.8 fL (7.9-10.8); MONOCYTES # (AUTO) 0.6 10^3/uL (0.0-1.0); MONOCYTES % (AUTO) 9.6 %; NEUTROPHILS % (AUTO) 53.1 %; PLT - PLATELET COUNT 287 10^3/uL (130-450); RED BLOOD COUNT 4.36 10^6/uL (4.20-5.40); RED CELL DISTRIBUTION WIDTH 12.9 % (12.0-15.0); WHITE BLOOD COUNT 5.7 x10^3/uL (4.8-10.8)
[2021-04-15 12:24] LABS: CALCIUM 9.7 mg/dL (8.5-10.3); CREATININE 0.8 mg/dL (0.4-1.0); POTASSIUM 4.1 mmol/L (3.5-5.0)
== END 2021-04-15 23:59 | disposition home or self-care (01) ==
LOC: LAB.WCP 08:40
PROVIDERS: ATTEND Family Medicine
DX: R00.2 Palpitations (principal)
CPT/HCPCS: 36415; 80048; 85025

== ENCOUNTER 2022-05-25 07:46 | Outpatient (CLI) | payer MEDICARE ==
[~2022-05-25 07:46] MED LIST: GADOBUTROL 7.5 MMOL/7.5 ML VIAL ONE
[2022-05-25 08:14] LABS: CREATININE 0.8 mg/dL (0.4-1.0)
--- NOTE | 2022-05-25 10:20 | MRI Report ---
PROCEDURE: Brain W/WO INDICATIONS: VERTIGO, TINNITUS BILATERAL CONTRAST: IV CONTRAST: Gadavist ml: 5.9 TECHNIQUE: Noncontrast axial T1 spin echo, axial T2 fast spin echo, sagittal and axial FLAIR, coronal T2 fast sp in echo, axial gradient echo, axial diffusion and ADC through the brain. After the administration of contrast, axial and coronal T1 spin echo with fat saturation through the brain. COMPARISON: Brain MRI dated 06/10/2020 FINDINGS: Image quality: Excellent. CSF spaces: Basal cisterns are patent. No extra-axial fluid collections. Ventricles are normal in size and shape. Brain: No midline shift. No intracranial bleeds or masses. No abnormal intracranial enhancement. There is cerebral volume loss for age. There is periventricular white matter chronic small vessel is chemic change. The brainstem appears normal. Diffusion-weighted images demonstrate no acute ischemi c insults. No chronic ischemic insults. Aneurysmal flow void within the region of the right middle c erebral artery trifurcation is unchanged. There is a vascular loop within the region of the right int ernal auditory canal, possibly indicating a posterior inferior cerebellar artery loop. Otherwise norm al intravascular flow voids are present. Skull and face: Calvarial marrow is normal in signal. Orbits appear normal. Sinuses: Sinuses and mastoids appear clear. IMPRESSION: 1. No acute intracranial abnormality. 2. Volume loss and small vessel ischemic disease. 3. 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 Recommend correla tion with MR angiography for confirmation. 4. No recent infarct. 5. Vascular loop within the region of the right internal auditory canal, which may indicate a posteri or inferior cerebellar artery loop, which could explain right-sided tinnitus. CT angiography may be h elpful for further assessment. Reviewed by: Ericka Lockhart MD on 05/25/2022 10:18 AM PDT Approved by: Ericka Lockhart MD on 05/25/2022 10:18 AM PDT Station ID: [id number]
== END 2022-05-25 07:47 | disposition home or self-care (01) ==
LOC: LAB 07:46
PROVIDERS: ATTEND Physician Assistant
DX: R42 Dizziness and giddiness (principal); H93.13 Tinnitus, bilateral; I67.2 Cerebral atherosclerosis; I67.1 Cerebral aneurysm, nonruptured
CPT/HCPCS: 36415; 70553; 82565; A9585

== ENCOUNTER 2022-06-15 15:01 | Outpatient (CLI) | payer MEDICARE ==
[2022-06-15] MEDS ORDERED: iohexoL-300 100 ML VIAL ONE (15:03)
--- NOTE | 2022-06-15 17:51 | CT Report ---
PROCEDURE: ANGIO HEAD W/WO INDICATIONS: CEREBRAL ANEURYSM CONTRAST: IV CONTRAST: Isovue 300 ml: 80 PO CONTRAST: *NO PO CONTRAST TECHNIQUE: Precontrast 4.5 mm thick angled axial sections acquired from the foramen magnum to the vertex. Afte r the administration of intravenous contrast, 1 mm thick sections acquired through the [place] of [place] is. Postcontrast 4.5 mm thick sections then re-acquired from the foramen magnum to the vertex. 3-di mensional bmxouwg-ieedoctvx-bdxbjfqchk (MIP) and/or volume rendering reformats were acquired of the c entral intracranial vasculature. For radiation dose reduction, the following was used: automated ex posure control, adjustment of mA and/or kV according to patient size. COMPARISON: Correlation is made with recent prior brain MRI, 05/25/2022. Correlation is also made wit h prior brain MR angiogram, 06/10/2020. FINDINGS: Image quality: Excellent. Anterior circulation: In this patient with this given history, scrutiny is given to the right trifur cation region. At this site, there is a prominent infundibulum seen, as on series 7 image 36 and on s eries 13 image 14. This measures up to 6 mm. There is an associated M2 branch that emanates from the tip of this infundibulum. Intracranial internal carotid arteries are normal in size and flow. The flow within the paired anter ior cerebral arteries is normal and symmetric. The flow within the middle cerebral arteries is grace l and symmetric. The anterior communicating artery is seen. Posterior circulation: Visualized portions of the vertebral arteries demonstrate normal caliber, and join to form a normal appearing basilar artery. Flow within the posterior cerebral arteries is norm al and symmetric. No aneurysms are seen. CSF spaces: Ventricles are normal in size and shape. Basal cisterns are patent. No extra-axial flu id collections. Brain: No midline shift. No intracranial bleeds or masses. [place]-white matter interface appears int act. Skull and face: Calvarium and facial bones appear intact, without suspicious lesions. Sinuses: Visualized sinuses and mastoids are clear. IMPRESSION: What has been previously described as a right MCA trifurcation aneurysm has appearance of an infundib ulum, as an M2 branch can be seen emanating from the tip of this structure. Reviewed by: Saeed Mendoza MD on 06/15/2022 4:50 PM AKDT Approved by: Saeed Mendoza MD on 06/15/2022 4:50 PM HIGINIO Station ID: [id number]
== END 2022-06-15 15:02 | disposition home or self-care (01) ==
LOC: DI 15:01
PROVIDERS: ATTEND Psychiatry & Neurology Neurology
DX: I67.1 Cerebral aneurysm, nonruptured (principal); I99.9 Unspecified disorder of circulatory system
CPT/HCPCS: 70496; Q9967

== ENCOUNTER 2022-06-30 10:06 | Outpatient (CLI) | payer MEDICARE | END 2022-06-30 10:07 | disposition home or self-care (01) | LOC: LAB.N 10:06 | PROVIDERS: ATTEND Physician Assistant | DX: G44.229 Chronic tension-type headache, not intractable (principal); R42 Dizziness and giddiness; H93.13 Tinnitus, bilateral | CPT/HCPCS: 36415; 85651; 86140 ==

== ENCOUNTER 2022-08-30 14:15 | Outpatient (CLI) | payer MEDICARE ==
--- NOTE | 2022-08-30 15:08 | DEXA Report ---
PROCEDURE: Dexa Spine and/or Hip INDICATIONS: POST MENOPAUSAL TECHNIQUE: Dual energy x-ray absorptiometry (DXA) was performed on a [employer] System. Regions measur ed are the AP Spine, femoral neck, and if needed forearm. COMPARISON: None. FINDINGS: Lumbar Spine: Bone Mineral Density 0.867 g/cm/cm,T score -2.6, osteoporosis Left Femoral Neck: Bone Mineral Density 0.66 g/cm/cm, T score -3.0, osteoporosis Left Hip: Bone Mineral Density 0.648 g/cm/cm,T score -2.9, osteoporosis (T score greater or equal to -1.0: NORMAL) (T score from -1.1 to -2.4: OSTEOPENIA) (T score less than or equal to -2.5 to: OSTEOPOROSIS) Impression: Osteoporosis. Patients with diagnosis of osteoporosis or osteopenia should have regular bone mineral density assess ment. For those eligible for Medicare, routine testing is allowed once every 2 years. Testing frequ ency can be increased for patients who have rapidly progressing disease or for those who are receivin g medical therapy to restore bone mass. Reviewed by: Juju Quach MD, PhD on 08/30/2022 3:07 PM PST Approved by: Juju Quach MD, PhD on 08/30/2022 3:07 PM PST Station ID: [id number]
== END 2022-08-30 14:16 | disposition home or self-care (01) ==
LOC: DI 14:15
PROVIDERS: ATTEND Physician Assistant
DX: Z78.0 Asymptomatic menopausal state (principal); M81.0 Age-related osteoporosis without current pathological fracture

== ENCOUNTER 2022-08-30 14:16 | Outpatient (CLI) | payer MEDICARE ==
--- NOTE | 2022-08-31 10:41 | Mammography Report ---
BILATERAL DIGITAL SCREENING MAMMOGRAM 3D/2D: 08/30/2022 CLINICAL: Routine screening. Comparison is made to exams dated: 04/23/2020 mammogram, 04/10/2019 mammogram, 11/23/2017 mammogram, 11/02 mammogram, and 08/25/2015 mammogram - [facility]. There are scattered areas of fibroglandular density in both breasts (category b / 25%-50% glandular t issue). No significant masses, calcifications, or other findings are seen in either breast. There has been no significant interval change. IMPRESSION: NEGATIVE There is no mammographic evidence of malignancy. A 1 year screening mammogram is recommended. Based on the Tyrer Cuzick model (a risk assessment model) the patients lifetime risk is 4.7% and her 10 year risk is 4.7%. According to the ACR, ACS, and NCCN guidelines, an annual breast MRI exam toney g with mammogram is recommended if the patients lifetime risk is 20% or greater. This exam was interpreted at Station ID: [id number]. NOTE: For mammograms, a report in lay terms will be sent to the patient. Approximately 15% of breast malignancies will not be visualized mammographically. In the management of a palpable breast mass, a negative mammogram must not discourage biopsy of a clinically suspicious lesion. Electronically Signed By: Fletcher Garcia M.D. acr/penrad:08/30/2022 16:43:39 ACR BI-RADS Category 1: Negative 3341F PARENCHYMAL PATTERN: (A) - The breast(s) demonstrate(s) scattered fibroglandular densities. BI-RADS CATEGORY: (1) - 1 RECOMMENDATION: (ANNUAL) - Recommend routine annual screening mammography. [id number] 1 year screening LATERALITY: (B)
== END 2022-08-30 14:17 | disposition home or self-care (01) ==
LOC: DI 14:16
PROVIDERS: ATTEND Physician Assistant
DX: Z12.31 Encounter for screening mammogram for malignant neoplasm of breast (principal)

== ENCOUNTER 2023-04-10 10:16 | Outpatient (CLI) | payer MEDICARE ==
[2023-04-10 12:44] LABS: BASOPHILS # (AUTO) 0.1 10^3/uL (0.0-0.1); BASOPHILS % (AUTO) 0.8 %; EOSINOPHILS # (AUTO) 0.2 10^3/uL (0.0-0.7); HCT - HEMATOCRIT 40.2 % (37.0-47.0); HGB - HEMOGLOBIN 13.1 g/dL (12.0-16.0); LYMPHOCYTES # (AUTO) 1.7 10^3/uL (1.5-3.5); LYMPHOCYTES % (AUTO) 27.5 %; MEAN CORPUSCULAR HGB CONC 32.6 g/dL (32.0-36.0); MEAN PLATELET VOLUME 10.1 fL (7.9-10.8); MONOCYTES # (AUTO) 0.6 10^3/uL (0.0-1.0); MONOCYTES % (AUTO) 9.4 %; NEUTROPHILS # (AUTO) 3.6 10^3/uL (1.5-6.6); NEUTROPHILS % (AUTO) 59.1 %; PLT - PLATELET COUNT 250 10^3/uL (130-450); RED BLOOD COUNT 4.23 10^6/uL (4.20-5.40); RED CELL DISTRIBUTION WIDTH 13.4 % (12.0-15.0); WHITE BLOOD COUNT 6.1 x10^3/uL (4.8-10.8)
[2023-04-10 13:10] LABS: ALBUMIN 4.2 g/dL (3.2-5.5); ALBUMIN/GLOBULIN RATIO 1.6 (1.0-2.2); ALKALINE PHOSPHATASE 45 IU/L (42-121); ALT ALANINE AMINOTRANSFERASE 12 IU/L (10-60); AST ASPARTATE AMINOTRANSFERASE 20 IU/L (10-42); BILIRUBIN,TOTAL 0.4 mg/dL (0.2-1.0); BUN - BLOOD UREA NITROGEN 12 mg/dL (6-20); CALCIUM 9.6 mg/dL (8.5-10.3); CARBON DIOXIDE - CO2 31 mmol/L (21-32); CHLORIDE 105 mmol/L (101-111); CHOL/HDL RATIO 3.8 (<4.4); CHOLESTEROL 300 mg/dL; CREATININE 0.7 mg/dL (0.6-1.3); GFR - MDRD 81 (>89); GLUCOSE 108 mg/dL (74-104); HDL CHOLESTEROL 78 mg/dL; LDL CHOLESTEROL,CALCULATED 178 mg/dL; LDL/HDL RATIO 2.3 (<4.4); POTASSIUM 4.3 mmol/L (3.5-4.5); SODIUM 140 mmol/L (135-145); TOTAL PROTEIN 6.8 g/dL (6.4-8.9); TRIGLYCERIDES 222 mg/dL (48-352); VLDL CHOLESTEROL 44 mg/dL
== END 2023-04-10 10:17 | disposition home or self-care (01) ==
LOC: LAB.N 10:16
PROVIDERS: ATTEND Physician Assistant Medical
DX: E78.5 Hyperlipidemia, unspecified (principal); K21.9 Gastro-esophageal reflux disease without esophagitis
CPT/HCPCS: 36415; 80053; 80061; 83721; 85025

== ENCOUNTER 2023-08-15 08:57 | Outpatient (CLI) | payer MEDICARE ==
[2023-08-15 12:24] LABS: CHOL/HDL RATIO 2.6 (<4.4); CHOLESTEROL 209 mg/dL; HDL CHOLESTEROL 80 mg/dL; LDL CHOLESTEROL,CALCULATED 113 mg/dL; LDL/HDL RATIO 1.4 (<4.4); TRIGLYCERIDES 82 mg/dL (48-352); VLDL CHOLESTEROL 16 mg/dL
== END 2023-08-15 08:58 | disposition home or self-care (01) ==
LOC: LAB.N 08:57
PROVIDERS: ATTEND Physician Assistant Medical
DX: E78.5 Hyperlipidemia, unspecified (principal)
CPT/HCPCS: 36415; 80061; 83721

== ENCOUNTER 2023-08-15 12:50 | Outpatient (CLI) | payer MEDICARE ==
--- NOTE | 2023-08-16 09:24 | Mammography Report ---
BILATERAL DIGITAL SCREENING MAMMOGRAM 3D/2D: 08/15/2023 CLINICAL: Routine screening. Family history of breast cancer. Comparison is made to exams dated: 08/30/2022 mammogram, 04/23/2020 mammogram, and 04/10/2019 mammogram - [facility]. There are scattered areas of fibroglandular density in both breasts (category b / 25%-50% glandular t issue). No significant masses, calcifications, or other findings are seen in either breast. There has been no significant interval change. IMPRESSION: NEGATIVE There is no mammographic evidence of malignancy. A 1 year screening mammogram is recommended. Based on the Tyrer Cuzick model (a risk assessment model) the patients lifetime risk is 7.0% and her 10 year risk is 0.0%. According to the ACR, ACS, and NCCN guidelines, an annual breast MRI exam toney g with mammogram is recommended if the patients lifetime risk is 20% or greater. This exam was interpreted at Station ID: [id number]. NOTE: For mammograms, a report in lay terms will be sent to the patient. Approximately 15% of breast malignancies will not be visualized mammographically. In the management of a palpable breast mass, a negative mammogram must not discourage biopsy of a clinically suspicious lesion. Electronically Signed By: Javi albarado/amira:08/15/2023 13:26:54 letter sent: No_Letter ACR BI-RADS Category 1: Negative 3341F PARENCHYMAL PATTERN: (A) - The breast(s) demonstrate(s) scattered fibroglandular densities. BI-RADS CATEGORY: (1) - 1 Mammogram [id number] 1 year screening LATERALITY: (B)
== END 2023-08-15 12:51 | disposition home or self-care (01) ==
LOC: DI.N 12:50
DX: Z12.31 Encounter for screening mammogram for malignant neoplasm of breast (principal); Z80.3 Family history of malignant neoplasm of breast; R92.323 Mammographic fibroglandular density, bilateral breasts

== ENCOUNTER 2024-01-25 08:03 | Outpatient (CLI) | payer MEDICARE ==
[2024-01-25 12:12] LABS: ALBUMIN 4.3 g/dL (3.2-5.5); ALBUMIN/GLOBULIN RATIO 1.7 (1.0-2.2); BILIRUBIN,TOTAL 0.5 mg/dL (0.2-1.0); PHOSPHORUS 3.6 mg/dL (2.5-5.0); POTASSIUM 4.4 mmol/L (3.5-4.5); TOTAL PROTEIN 6.9 g/dL (6.4-8.9)
[2024-01-25 12:23] LABS: THYROID STIMULATING HORMONE 4.34 uIU/mL (0.34-5.60)
== END 2024-01-25 08:04 | disposition home or self-care (01) ==
LOC: LAB.N 08:03
PROVIDERS: ATTEND Physician Assistant Medical
DX: R00.2 Palpitations (principal)
CPT/HCPCS: 36415; 80053; 83735; 84100; 84443